=== PATIENT | female | born 2000 | race Caucasian/White ===

== ENCOUNTER 2022-02-28 09:55 | Emergency (ER) | payer OTHER ==
[~2022-02-28] VITALS: Ht 157.5 cm; Wt 72.6 kg
[2022-02-28 10:23] VITALS: BP_SYST 144
[2022-02-28] MEDS ORDERED: RABIES IMMUNE GLOBULIN 300 UNIT/2 ML I.M. ONE (11:00)
[2022-02-28] MEDS ORDERED: RABIES VACCINE IM ONE (13:45)
[2022-02-28 14:00] VITALS: BP_SYST 144
[2022-02-28] MEDS ORDERED: COMMUNICATION ORDER XX ONE (14:00)
== END 2022-02-28 14:00 | disposition home or self-care (01) ==
LOC: SED 09:55
DX: Z20.3 Contact with and (suspected) exposure to rabies (principal)
CPT/HCPCS: 90376; 99283